=== PATIENT | female | born 1990 | race African-American/Black ===

== ENCOUNTER 2017-06-05 17:56 | Emergency (ER) | payer SELFPAY ==
[2017-06-05 18:08] VITALS: BP 149/67; PULSE 81; TEMP 98.3; BMI 18.3
[2017-06-05] MEDS ORDERED: DEXAMETHASONE 4 MG TABLET (FP) PO ONE (19:54)
--- NOTE | 2017-06-05 19:54 | PDOC ---
History of Present Illness - General Chief Complaint: Bite Stated Complaint: BITE Time Seen by Provider: 06/05/17 19:22 - History of Present Illness Initial Comments: 06/05/17 19:49 CHIEF COMPLAINT: painful insect bites HISTORY OF PRESENT ILLNESS: 24 yr female with chronic eczema presents to [facility] with painful insect bites to b/l arms. Patient reports being bit "a bunch of times" by unknown insect "about a week ago" and that the bite have become hard, swollen, and painful to touch. She also complains that her itching from her eczema has become unbearable. No recent travel or sick contacts. PAST MEDICAL HISTORY: Denies past medical history FAMILY HISTORY: Denies SOCIAL HISTORY: Denies tobacco, alcohol, illicit drug use. SURGICAL HISTORY: Denies ALLERGIES: No known drug allergies REVIEW OF SYSTEMS General/Constitutional: Denies fever or chills. Denies weakness, weight change. HEENT: Denies change in vision. Denies ear pain or discharge. Denies sore throat. Cardiovascular: Denies chest pain or shortness of breath. Respiratory: Denies cough, wheezing, or hemoptysis. Gastrointestinal: Denies nausea, vomiting, diarrhea or constipation. Denies rectal bleeding. Genitourinary: Denies dysuria, frequency, or change in urination. Musculoskeletal: Denies joint or muscle swelling or pain. Denies neck or back pain. Skin and breasts: "I have these painful insect bites and they are so painful now I can't touch them." PHYSICAL EXAM General Appearance: Well-appearing, appropriately dressed. No apparent distress , no intoxication. HEENT: EOMI, PERRLA, normal ENT inspection, normal voice, TMs normal, pharynx normal. No conjunctival pallor. No photophobia, scleral icterus. Respiratory/Chest: Lungs CTAB. Cardiovascular: RRR. S1, S2. Gastrointestinal/Abdominal: Normal bowel sounds. Abdomen soft, non-distended. No tenderness or rebound tenderness. No organomegaly, pulsatile mass, guarding , hernia, hepatomegaly, splenomegaly. Musculoskeletal/Extremities: Normal inspection. FROM of all extremities, normal capillary refill. Pelvis Stable. No CVA tenderness. No tenderness to extremities, pedal edema, swelling, erythema or deformity. Integumentary: Multiple insect bites to left arm and to R knee, now erythematous and warm to touch. One bite to left forearm with draining open wound with mucupurulent drainage. Superficial bite to R knee approximately 2 cm in diameter, warm to touch, no fluctuance. Neurologic: rigging foreman II-XII intact. Fully oriented, alert. Appropriate mood/affect. Motor strength 5/5. No appreciable EOM palsy, facial droop or sensory deficit. 06/05/17 20:04 06/05/17 20:04 Past History - Past Medical History Allergies/Adverse Reactions: Allergies Allergy/AdvReac Type Severity Reaction Status Date / Time No Known Allergies Allergy Verified 06/05/17 18:03 Home Medications: Ambulatory Orders Ferrous Gluconate [Iron] 256 mg PO TID 12/15/15 Clindamycin HCl [Cleocin HCl] 300 mg PO QID #40 capsule 06/05/17 Asthma: No Cancer: No Cardiac Disorders: No Diabetes: No HTN: No Seizures: No Thyroid Disease: No Other medical history: ECZEMA - Suicide/Smoking/Psychosocial Hx Smoking Status: Yes Smoking History: Never smoked Have you smoked in the past 12 months: Yes Number of Cigarettes Smoked Daily: 1 Information on smoking cessation initiated: Yes 'Breaking Loose' booklet given: 06/05/17 Hx Alcohol Use: No Drug/Substance Use Hx: No Substance Use Type: None Hx Substance Use Treatment: No *Physical Exam - Vital Signs Last Vital Signs Temp Pulse Resp BP Pulse Ox 98.3 F 81 18 149/67 100 06/05/17 18:04 06/05/17 18:04 06/05/17 18:04 06/05/17 18:04 06/05/17 18:04 Medical Decision Making - Medical Decision Making 06/05/17 20:05 24 yr female with chronic eczema presents to [facility] with painful insect bites to b/l arms. Clinical presentation consistent with cellulitis secondary to insect bites. No drainable abscesses at this time; area of cellulitis circumscribed with marker. -Clindamycin rx sent to pharm -Decadron 10 mg ADvised patient to take medication as prescribed; strict directions given for signs and symptoms for return. Mother and patient verbalized understanding and agree to plan. *DC/Admit/Observation/Transfer Diagnosis at time of Disposition: Eczema of both hands Cellulitis Qualifiers: Site of cellulitis: extremity - Discharge Dispostion Disposition: HOME Condition at time of disposition: Stable Admit: No - Prescriptions Prescriptions: Clindamycin HCl [Cleocin HCl] 300 mg PO QID #40 capsule - Patient Instructions Printed Discharge Instructions: DI for Insect Bites and Stings, DI for Cellulitis -- Adult Additional Instructions: As discussed, you must soak the bites 4 times daily in warm water for at least 15 minutes each time. You MUST take medication as prescribed; complete the entire course of medication even if the bites improve. As discussed, please monitor the bites for the next 48 hours and should the area of redness, swelling , or pain spread past the area drawn by marker, please return to the ER.
[2017-06-05] MEDS ORDERED: CLINDAMYCIN HCL 300 MG CAPSULE PO ONE (20:10)
== END 2017-06-05 20:21 | disposition home or self-care (01) ==
LOC: JERFT 17:56
DX: S40.862A Insect bite (nonvenomous) of left upper arm, initial encounter (principal); S40.861A Insect bite (nonvenomous) of right upper arm, initial encounter; S80.261A Insect bite (nonvenomous), right knee, initial encounter; L03.113 Cellulitis of right upper limb; L03.115 Cellulitis of right lower limb; W57.XXXA Bitten or stung by nonvenomous insect and other nonvenomous arthropods, initial encounter; Y93.89 Activity, other specified; Y92.89 Other specified places as the place of occurrence of the external cause; Y99.8 Other external cause status
CPT/HCPCS: 99281-25

== ENCOUNTER 2018-06-08 16:07 | Emergency (ER) | payer OTHER ==
[2018-06-08 16:19] VITALS: BP 125/82; PULSE 73; TEMP 98.8; BMI 20.7
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
[2018-06-08] MEDS ORDERED: IBUPROFEN 600 MG TABLET (FP) PO ONE ×2 (17:40→17:48)
--- NOTE | 2018-06-08 17:46 | PDOC ---
History of Present Illness - General Chief Complaint: Ear Problem Stated Complaint: HEADACHE, EAR PROBLEM Time Seen by Provider: 06/08/18 16:16 History Source: Patient Exam Limitations: No Limitations Past History - Travel Traveled outside of the country in the last 30 days: No Close contact w/someone who was outside of country & ill: No - Past Medical History Allergies/Adverse Reactions: Allergies Allergy/AdvReac Type Severity Reaction Status Date / Time seafood Allergy Uncoded 06/08/18 16:15 Home Medications: Ambulatory Orders Ibuprofen [Ibu] 600 mg PO Q6H #30 tablet 06/08/18 Asthma: No Cancer: No Cardiac Disorders: No COPD: No Diabetes: No HTN: No Seizures: No Thyroid Disease: No - Immunization History Immunization Up to Date: No - Suicide/Smoking/Psychosocial Hx Smoking Status: Yes Smoking History: Current every day smoker Have you smoked in the past 12 months: Yes Number of Cigarettes Smoked Daily: 5 Information on smoking cessation initiated: No 'Breaking Loose' booklet given: 06/05/17 Hx Alcohol Use: No Drug/Substance Use Hx: No Substance Use Type: None Hx Substance Use Treatment: No Review of Systems - Review of Systems Able to Perform ROS?: Yes Comments:: 06/08/18 17:43 CONSTITUTIONAL: Absent: fever, chills, diaphoresis, generalized weakness, malaise, loss of appetite HEENT: Absent: rhinorrhea, nasal congestion, throat pain, throat swelling, difficulty swallowing, mouth swelling, ear pain, eye pain, visual Changes CARDIOVASCULAR: Absent: chest pain, loss of consciousness, palpitations, irregular heart rate, peripheral edema RESPIRATORY: Absent: cough, shortness of breath, dyspnea with exertion, orthopnea, wheezing, stridor, hemoptysis GASTROINTESTINAL: Absent: abdominal pain, abdominal distension, nausea, vomiting, diarrhea, constipation, melena, hematochezia GENITOURINARY: Absent: dysuria, frequency, urgency, hesitancy, hematuria, flank pain, genital pain MUSCULOSKELETAL: Absent: myalgia, arthralgia, joint swelling SKIN: Absent: rash, itching, pallor HEMATOLOGIC/IMMUNOLOGIC: Absent: easy bleeding, easy bruising, lymphadenopathy, frequent infections ENDOCRINE: Absent: unexplained weight gain, unexplained weight loss, heat intolerance, cold intolerance NEUROLOGIC: Absent: headache, focal weakness or paresthesias, dizziness, unsteady gait, seizure, mental status changes, bladder or bowel incontinence PSYCHIATRIC: Absent: anxiety, depression, suicidal or homicidal ideation, hallucinations. Is the patient limited Guyanese proficient: No *Physical Exam - Vital Signs Last Vital Signs Temp Pulse Resp BP Pulse Ox 98.8 F 73 18 125/82 98 06/08/18 16:15 06/08/18 16:15 06/08/18 16:15 06/08/18 16:15 06/08/18 16:15 - Physical Exam Comments: 06/08/18 17:43 GENERAL: Well developed, well nourished. Awake and alert. No acute distress. HEENT: Normocephalic, atraumatic. PERRLA, EOMI. No conjunctival pallor. Sclera are non- icteric. Moist mucous membranes. Oropharynx is clear. NECK: Supple. Full ROM. No JVD. Carotid pulses 2+ and symmetric, without bruits. No thyromegaly. No lymphadenopathy. CARDIOVASCULAR: Regular rate and rhythm. No murmurs, rubs, or gallops. Distal pulses are 2+ and symmetric. PULMONARY: No evidence of respiratory distress. Lungs clear to auscultation bilaterally. No wheezing, rales or rhonchi. ABDOMINAL: Soft. Non-tender. Non-distended. No rebound or guarding. No organomegaly. Normoactive bowel sounds. MUSCULOSKELETAL Normal range of motion at all joints. No bony deformities or tenderness. No CVA tenderness. EXTREMITIES: No cyanosis. No clubbing. No edema. No calf tenderness. SKIN: Warm and dry. Normal capillary refill. No rashes. No jaundice. NEUROLOGICAL: Alert, awake, appropriate. Cranial nerves 2-12 intact. No deficits to light touch and temperature in face, upper extremities and lower extremities. No motor deficits in the in face, upper extremities and lower extremities. Normoreflexic in the upper and lower extremities. Normal speech. Toes are down- going bilaterally. Gait is normal without ataxia. PSYCHIATRIC: Cooperative. Good eye contact. Appropriate mood and affect. *DC/Admit/Observation/Transfer Diagnosis at time of Disposition: Ear pain, left Ruptured tympanic membrane Qualifiers: Laterality: left Qualified Code(s): H72.92 - Unspecified perforation of tympanic membrane, left ear - Discharge Dispostion Disposition: HOME Condition at time of disposition: Stable Decision to Admit order: No - Referrals Referrals: Demetrius Castaneda [Primary Care Provider] - Adi Quan MD [Staff Physician] - - Patient Instructions Printed Discharge Instructions: DI for Tympanic Membrane Perforation-Adult Additional Instructions: You have a ruptured ear drum This should get better on its own over time Please take Motrin 600mg every 6 hours as needed for pain Please follow up with ENT this week. The information has been provided Return to the ED for any new or worsening symptoms. - Post Discharge Activity Forms/Work/School Notes: Back to Work
== END 2018-06-08 17:48 | disposition home or self-care (01) ==
LOC: JERFT 16:07
DX: S09.22XA Traumatic rupture of left ear drum, initial encounter (principal); X58.XXXA Exposure to other specified factors, initial encounter; Y93.89 Activity, other specified; Y92.89 Other specified places as the place of occurrence of the external cause; Y99.8 Other external cause status
CPT/HCPCS: 84703; 99281-25

== ENCOUNTER 2018-06-27 11:15 | Emergency (ER) | payer OTHER ==
[2018-06-27 11:23] VITALS: BMI 20.7
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
[2018-06-27] MEDS ORDERED: IBUPROFEN 600 MG TABLET (FP) PO ONE (11:40)
[2018-06-27] MEDS ORDERED: LORATADINE 10 MG TABLET PO ONE (12:28)
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
[2018-06-27 13:10] LABS: HCG,QUALITATIVE URINE Negative
[2018-06-27 13:23] LABS: COCAINE, UR NEGATIVE ng/ml (CUTOFF=300); METHADONE, UR NEGATIVE ng/ml (CUTOFF=300); OPIATES, URI NEGATIVE ng/ml (CUTOFF=300); PHENCYCLIDINE,URINE NEGATIVE ng/ml (CUTOFF=25); URINE AMPHETAMINES NEGATIVE ng/ml (CUTOFF=500); URINE APPEARANCE CLEAR; URINE BARBITURATES NEGATIVE ng/ml (CUTOFF=200); URINE BENZODIAZEPINES NEGATIVE ng/ml (CUTOFF=200); URINE BILIRUBIN NEGATIVE (<2.0 mg/dL); URINE COLOR LTYELLOW; URINE GLUCOSE (UA) NEGATIVE (NEGATIVE); URINE KETONE NEGATIVE (NEGATIVE); URINE LEUK ESTERASE NEGATIVE (NEGATIVE); URINE NITRITE NEGATIVE (NEGATIVE); URINE PROTEIN NEGATIVE (NEGATIVE); URINE UROBILINOGEN NEGATIVE mg/dL (0.2-1.0)
[2018-06-27 13:38] LABS: EPI CELLS FEW /HPF (FEW); URINE MUCUS RARE
[2018-06-27 14:34] LABS: BASO % 0.7 % (0-2.0); EOS % 1.2 % (0-4.5); HEMATOCRIT 40.7 % (32.4-45.2); HEMOGLOBIN 13.6 GM/dL (10.7-15.3); LYMPH % 29.2 % (8-40); MCH 31.3 pg (25.7-33.7); MCHC 33.4 g/dl (32.0-36.0); MEAN CELL VOLUME 93.7 fl (80-96); MEAN PLT VOLUME 8.9 fl (7.5-11.1); MONO % 11.1 % (3.8-10.2); NEUT % 57.8 % (42.8-82.8); PLATELET COUNT 294 K/MM3 (134-434); RBC 4.35 M/mm3 (3.60-5.2); RDW 12.7 % (11.6-15.6); WHITE BLOOD COUNT 5.1 K/mm3 (4.0-10.0)
[2018-06-27 14:55] LABS: ALBUMIN 3.6 g/dl (3.4-5.0); ALK PHOS 45 U/L (45-117); ANION GAP 7 MMOL/L (8-16); BILIRUBIN,TOTAL 0.3 mg/dL (0.2-1); BLOOD UREA NITROGEN 14 mg/dL (7-18); CHLORIDE 106 mmol/L (98-107); CO2 27 mmol/L (21-32); CREATININE 0.7 mg/dL (0.55-1.3); GLUCOSE,RANDOM 90 mg/dL (74-106); SGOT/AST 16 U/L (15-37); SGPT/ALT 19 U/L (13-61); SODIUM 139 mmol/L (136-145); TOT PROT 6.9 g/dl (6.4-8.2)
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
[2018-06-28 13:03] VITALS: BP 127/76; PULSE 79; TEMP 99.2
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
== END 2018-06-28 14:40 | disposition home or self-care (01) ==
LOC: JER 11:15
DX: R45.851 Suicidal ideations (principal); Z91.419 Personal history of unspecified adult abuse; Z59.0 Homelessness
CPT/HCPCS: 36415; 80053; 80307; 81003; 81015; 84436; 84443; 84481; 84703; 85025; 99282-25

== ENCOUNTER 2020-08-14 10:39 | Emergency (ER) | payer OTHER ==
[2020-08-14 10:52] VITALS: BP 138/84; PULSE 107; TEMP 97.9
[2020-08-14] MEDS ORDERED: DIPHTH,PERTUSS(ACELL),TET 0.5 ML DISP.SYRIN IM ONE ×2 (11:09→11:28)
[2020-08-14] MEDS ORDERED: BACITRACIN 15 GM TUBE TOPICAL OINTMENT ONE (11:11)
[2020-08-14] MEDS ORDERED: IBUPROFEN 600 MG TABLET (FP) PO ONE ×2 (12:08→12:18)
== END 2020-08-14 12:36 | disposition home or self-care (01) ==
LOC: JER 10:39 → JERFT 10:39
PROC: 3E0234Z Introduction of Serum, Toxoid and Vaccine into Muscle, Percutaneous Approach (ICD-10-PCS; principal; 2020-08-14)
DX: S61.204A Unspecified open wound of right ring finger without damage to nail, initial encounter (principal)
CPT/HCPCS: 73110-TC-RT-FY; 73130-TC-RT-FY; 90715; 99284-25

== ENCOUNTER 2021-09-21 15:46 | Emergency (ER) | payer OTHER ==
[2021-09-21 16:03] VITALS: BP 125/67; PULSE 90; TEMP 98.5; BMI 19.1
[2021-09-21] MEDS ORDERED: ONDANSETRON 4 MG/2 ML VIAL IVPUSH ONE (16:41)
[2021-09-21] MEDS ORDERED: SODIUM CHLORIDE 0.9% 500 ML INFUS.BAG IV ONE (16:41)
[2021-09-21] MEDS ORDERED: ONDANSETRON 4 MG/2 ML VIAL ONE (16:49)
[2021-09-21 19:13] LABS: BASO % 0.3 % (0-2.0); HEMATOCRIT 37.4 % (32.4-45.2); HEMOGLOBIN 12.6 GM/dL (10.7-15.3); LYMPH % 6.5 % (8-40); MCHC 33.6 g/dl (32.0-36.0); MEAN CELL VOLUME 95.2 fl (80-96); MEAN PLT VOLUME 8.5 fl (7.5-11.1); MONO % 4.9 % (3.8-10.2); NEUT % 88.3 % (42.8-82.8); PLATELET COUNT 312 10^3/uL (134-434); RBC 3.93 M/mm3 (3.60-5.2); RDW 12.9 % (11.6-15.6); WHITE BLOOD COUNT 8.6 K/mm3 (4.0-10.0)
[2021-09-21 19:19] LABS: INR 1.68 (0.83-1.09); PROTHROMBIN TIME (PATIENT) 19.4 SEC (9.7-13.0)
[2021-09-21 19:21] LABS: ACTIVATED PTT 25.3 SECONDS (25.2-36.5)
[2021-09-21 21:48] LABS: BLOOD UREA NITROGEN 17.2 mg/dL (7-18); CALCIUM 8.6 mg/dL (8.5-10.1)
[2021-09-21 21:52] LABS: CREATININE 0.8 mg/dL (0.55-1.3)
[2021-09-21 21:53] LABS: BILIRUBIN,TOTAL 0.5 mg/dL (0.2-1)
[2021-09-21 22:07] LABS: TOT PROT 7.2 g/dl (6.4-8.2)
== END 2021-09-21 21:29 | disposition left against medical advice (07) ==
LOC: JER 15:46
PROC: 3E033NZ Introduction of Analgesics, Hypnotics, Sedatives into Peripheral Vein, Percutaneous Approach (ICD-10-PCS; principal; 2021-09-21)
DX: F10.920 Alcohol use, unspecified with intoxication, uncomplicated (principal); R11.10 Vomiting, unspecified
CPT/HCPCS: 36415; 71045-TC-FY; 80053; 85025; 85610; 85730; 99285-25

== ENCOUNTER 2022-01-13 21:13 | Emergency (ER) | payer OTHER ==
[2022-01-13 21:47] VITALS: BP 111/78; PULSE 78; TEMP 98.9; BMI 19.1
[2022-01-13] MEDS ORDERED: ACETAMINOPHEN 325 MG TABLET (FP) PO ONE (22:45)
[2022-01-13] MEDS ORDERED: ACETAMINOPHEN 325 MG TABLET (FP) ONE (22:55)
== END 2022-01-13 23:30 | disposition home or self-care (01) ==
LOC: JER 21:13
DX: M54.2 Cervicalgia (principal); M54.50 Low back pain, unspecified; V49.50XA Passenger injured in collision with unspecified motor vehicles in traffic accident, initial encounter
CPT/HCPCS: 99283-25

== ENCOUNTER 2022-04-06 23:11 | Emergency (ER) | payer OTHER ==
[2022-04-06 23:42] VITALS: BP 100/68; PULSE 63; RESP 20; TEMP 97; BMI 19.1
[2022-04-06] MEDS ORDERED: ONDANSETRON 4 MG/2 ML VIAL IVPUSH ONE (23:50)
[2022-04-06] MEDS ORDERED: FAMOTIDINE 20 MG/50 ML IVPB 20 MG/50 ML MG IVPB ONE (23:50)
[2022-04-06] MEDS ORDERED: SODIUM CHLORIDE 0.9% 500 ML INFUS.BAG IV ONE (23:50)
[2022-04-07] MEDS ORDERED: ONDANSETRON 4 MG/2 ML VIAL ONE (00:17)
[2022-04-07 01:02] LABS: BASO % 0.3 % (0-2.0); EOS % 0.1 % (0-4.5); HEMATOCRIT 44.2 % (32.4-45.2); HEMOGLOBIN 15.1 GM/dL (10.7-15.3); MCH 32.5 pg (25.7-33.7); MCHC 34.3 g/dl (32.0-36.0); MEAN CELL VOLUME 94.9 fl (80-96); MEAN PLT VOLUME 8.6 fl (7.5-11.1); MONO % 5.8 % (3.8-10.2); NEUT % 81.8 % (42.8-82.8); PLATELET COUNT 357 10^3/uL (134-434); RBC 4.66 M/mm3 (3.60-5.2); RDW 12.6 % (11.6-15.6); WHITE BLOOD COUNT 9.5 K/mm3 (4.0-10.0)
[2022-04-07 01:32] LABS: ALBUMIN 5.1 g/dl (3.4-5.0); BLOOD UREA NITROGEN 19.2 mg/dL (7-18); CALCIUM 10.3 mg/dL (8.5-10.1); MAGNESIUM 2.1 mg/dL (1.8-2.4)
[2022-04-07 01:35] LABS: CREATININE 0.8 mg/dL (0.55-1.3)
[2022-04-07 01:37] LABS: BILIRUBIN,TOTAL 0.6 mg/dL (0.2-1); TOT PROT 8.8 g/dl (6.4-8.2)
[2022-04-07 01:43] LABS: LACTIC ACID 2.4 mmol/L (0.4-2.0)
[2022-04-07] MEDS ORDERED: FAMOTIDINE 20 MG/50 ML IVPB 20 MG/50 ML MG IVPB ONE (02:15)
== END 2022-04-07 06:16 | disposition home or self-care (01) ==
LOC: JER 23:11
PROC: 3E033GC Introduction of Other Therapeutic Substance into Peripheral Vein, Percutaneous Approach (ICD-10-PCS; principal; 2022-04-06)
DX: T51.0X1A Toxic effect of ethanol, accidental (unintentional), initial encounter (principal); R10.84 Generalized abdominal pain; R11.10 Vomiting, unspecified
CPT/HCPCS: 36415; 71260-TC; 74177-TC; 80053; 83605; 83690; 83735; 84484; 84703; 85025; 93005; 93010; 99285-25; Q9967

== ENCOUNTER 2022-07-01 13:28 | Emergency (ER) | payer OTHER ==
[2022-07-01 13:39] VITALS: BP 113/89; PULSE 65; RESP 18; TEMP 97.4
[2022-07-01] MEDS ORDERED: ONDANSETRON 4 MG/2 ML VIAL IVPUSH ONE (15:44)
[2022-07-01 15:46] LABS: BASO % 0.6 % (0-2.0); EOS % 0.4 % (0-4.5); HEMATOCRIT 42.3 % (32.4-45.2); HEMOGLOBIN 14.5 GM/dL (10.7-15.3); LYMPH % 17.6 % (8-40); MCH 33.4 pg (25.7-33.7); MCHC 34.3 g/dl (32.0-36.0); MEAN CELL VOLUME 97.5 fl (80-96); MEAN PLT VOLUME 8.2 fl (7.5-11.1); MONO % 6.2 % (3.8-10.2); NEUT % 75.2 % (42.8-82.8); PLATELET COUNT 296 10^3/uL (134-434); RBC 4.34 M/mm3 (3.60-5.2); RDW 12.5 % (11.6-15.6); WHITE BLOOD COUNT 5.7 K/mm3 (4.0-10.0)
[2022-07-01 15:50] LABS: EPI CELLS 16 /uL (0-25.1); HYALINE CASTS 2 /uL (0-3.1); PH,URINE 8.5 (5.0-8.0); URINE APPEARANCE CLEAR; URINE BACTERIA 1173 /uL (0-1359); URINE BILIRUBIN NEGATIVE (NEGATIVE); URINE COLOR YELLOW; URINE GLUCOSE (UA) NEGATIVE (NEGATIVE); URINE KETONE NEGATIVE (NEGATIVE); URINE LEUK ESTERASE TRACE (NEGATIVE); URINE NITRITE NEGATIVE (NEGATIVE); URINE PROTEIN 1+ (NEGATIVE); URINE RBC 10 /uL (0-23.9); URINE WBC 8 /uL (0-25.8)
[2022-07-01 15:51] LABS: HCG,QUALITATIVE URINE Negative
[2022-07-01] MEDS ORDERED: ONDANSETRON 4 MG/2 ML VIAL ONE (15:53)
[2022-07-01 16:26] LABS: CHLORIDE 104 mmol/L (98-107); SODIUM 140 mmol/L (136-145)
[2022-07-01 16:28] LABS: ANION GAP 6 MMOL/L (8-16); BLOOD UREA NITROGEN 17.3 mg/dL (7-18); CALCIUM 9.7 mg/dL (8.5-10.1); CO2 29 mmol/L (21-32); GLUCOSE,RANDOM 106 mg/dL (74-106)
[2022-07-01 16:29] LABS: ALBUMIN 4.4 g/dl (3.4-5.0)
[2022-07-01 16:31] LABS: SGPT/ALT 43 U/L (13-61)
[2022-07-01 16:32] LABS: CREATININE 0.7 mg/dL (0.55-1.3); SGOT/AST 28 U/L (15-37)
[2022-07-01 16:33] LABS: BILIRUBIN,TOTAL 0.8 mg/dL (0.2-1); TOT PROT 7.7 g/dl (6.4-8.2)
[2022-07-01 16:34] LABS: ALK PHOS 51 U/L (45-117)
== END 2022-07-01 17:45 | disposition home or self-care (01) ==
LOC: JER 13:28
PROC: 3E033NZ Introduction of Analgesics, Hypnotics, Sedatives into Peripheral Vein, Percutaneous Approach (ICD-10-PCS; principal; 2022-07-01)
DX: R11.2 Nausea with vomiting, unspecified (principal)
CPT/HCPCS: 36415; 80053; 81003; 83735; 84702; 84703; 85025; 87086; 99284-25; C9803-CS; U0003; U0005

== ENCOUNTER 2022-09-22 02:31 | Emergency (ER) | payer OTHER ==
[2022-09-22 02:41] VITALS: BP 117/82; PULSE 67; RESP 18; TEMP 97.6; BMI 19.1
== END 2022-09-22 04:55 | disposition home or self-care (01) ==
LOC: JER 02:31
PROC: 0HQ1XZZ Repair Face Skin, External Approach (ICD-10-PCS; principal; 2022-09-22)
DX: S01.81XA Laceration without foreign body of other part of head, initial encounter (principal); Y04.0XXA Assault by unarmed brawl or fight, initial encounter
CPT/HCPCS: 99282-25